=== PATIENT | female | born 1990 | race Two or more races ===

== ENCOUNTER 2019-01-21 16:10 | Observation (INO) | payer MEDICAID, OTHER ==
[2019-01-22] MEDS ORDERED: PREN-145 OR (19:30)
== END 2019-01-21 17:25 | disposition home or self-care (01) | DRG 566 ==
LOC: LDRP 16:10
PROVIDERS: ADMIT Specialist; ATTEND Specialist
DX: O21.2 Late vomiting of pregnancy (principal); Z3A.30 30 weeks gestation of pregnancy
CPT/HCPCS: 59025; 76818; 81002; G0378

== ENCOUNTER 2019-01-22 19:00 | Observation (INO) | payer MEDICAID ==
[~2019-01-22] VITALS: Ht 160 cm; Wt 54.4 kg
[2019-01-22] MEDS ORDERED: PREN-145 OR (19:30)
== END 2019-01-22 20:10 | disposition home or self-care (01) | DRG 565 ==
LOC: LDRP 19:00
PROVIDERS: ADMIT Specialist; ATTEND Specialist
DX: O47.03 False labor before 37 completed weeks of gestation, third trimester (principal); O26.893 Other specified pregnancy related conditions, third trimester; R51 Headache; R11.0 Nausea; Z3A.30 30 weeks gestation of pregnancy
CPT/HCPCS: G0378

== ENCOUNTER 2019-01-23 10:59 | Observation (INO) | payer MEDICAID ==
[~2019-01-23] VITALS: Ht 152.4 cm; Wt 56.7 kg
[~2019-01-23 10:59] MED LIST: PREN-145 OR
[2019-01-23] MEDS ORDERED: BETAMETHASONE ACET (6MG/ML) 5ML VIAL IM ONE (13:00)
[2019-01-23] MEDS ORDERED: TERBUTALINE SULFATE 1 MG/ML 1ML VIAL SC ONE (13:11)
[2019-01-24] MEDS ORDERED: TERBUTALINE SULFATE 1 MG/ML 1ML VIAL SC ONE (10:00)
[2019-01-24] MEDS ORDERED: NIF10C PO (17:26)
== END 2019-01-23 13:25 | disposition home or self-care (01) | DRG 566 ==
LOC: LDRP 10:59
PROVIDERS: ADMIT Obstetrics & Gynecology; ATTEND Obstetrics & Gynecology
DX: O10.913 Unspecified pre-existing hypertension complicating pregnancy, third trimester (principal); Z3A.30 30 weeks gestation of pregnancy
CPT/HCPCS: 59025; 76818; 81002; G0378; J0702; J3105; 96361; 96366; 96372

== ENCOUNTER 2019-01-24 16:55 | Observation (INO) | payer MEDICAID ==
[2019-01-24] MEDS ORDERED: BETAMETHASONE ACET (6MG/ML) 5ML VIAL IM ONE (17:15)
[2019-01-24] MEDS ORDERED: NIF10C PO (17:26)
== END 2019-01-24 17:50 | disposition home or self-care (01) | DRG 560 ==
LOC: LDRP 16:55
PROVIDERS: ADMIT Obstetrics & Gynecology; ATTEND Obstetrics & Gynecology
DX: O69.5XX0 Labor and delivery complicated by vascular lesion of cord, not applicable or unspecified (principal); O62.9 Abnormality of forces of labor, unspecified; Z3A.30 30 weeks gestation of pregnancy
CPT/HCPCS: 59025; 81002; 96372; G0378; J0702

== ENCOUNTER 2019-01-26 11:25 | Observation (INO) | payer MEDICAID ==
[~2019-01-26 11:25] MED LIST changes: +NIF10C PO
== END 2019-01-26 11:30 | disposition home or self-care (01) | DRG 563 ==
LOC: LDRP 11:25
PROVIDERS: ADMIT Obstetrics & Gynecology; ATTEND Obstetrics & Gynecology
DX: O60.03 Preterm labor without delivery, third trimester (principal); O26.893 Other specified pregnancy related conditions, third trimester; N89.8 Other specified noninflammatory disorders of vagina; O69.5XX0 Labor and delivery complicated by vascular lesion of cord, not applicable or unspecified; Z3A.30 30 weeks gestation of pregnancy
CPT/HCPCS: 59025; 76818; 81002; G0378

== ENCOUNTER 2019-01-29 10:31 | Observation (INO) | payer MEDICAID | END 2019-01-29 11:45 | disposition home or self-care (01) | DRG 560 | LOC: LDRP 10:31 | PROVIDERS: ADMIT Specialist; ATTEND Specialist | DX: O69.5XX2 Labor and delivery complicated by vascular lesion of cord, fetus 2 (principal); Z3A.31 31 weeks gestation of pregnancy | CPT/HCPCS: 59025; 76818; 81002; G0378 ==

== ENCOUNTER 2019-02-01 09:46 | Observation (INO) | payer MEDICAID | END 2019-02-01 11:03 | disposition home or self-care (01) | DRG 560 | LOC: LDRP 09:46 | PROVIDERS: ADMIT Obstetrics & Gynecology; ATTEND Obstetrics & Gynecology | DX: O69.5XX2 Labor and delivery complicated by vascular lesion of cord, fetus 2 (principal); O60.03 Preterm labor without delivery, third trimester; O26.893 Other specified pregnancy related conditions, third trimester; N89.8 Other specified noninflammatory disorders of vagina; Z3A.31 31 weeks gestation of pregnancy | CPT/HCPCS: 59025; 76818; 81002; G0378 ==

== ENCOUNTER 2019-02-02 10:58 | Observation (INO) | payer MEDICAID | END 2019-02-06 11:30 | disposition home or self-care (01) | DRG 560 | LOC: UNDOADMOB 10:58 → LDRP 10:58 | PROVIDERS: ADMIT Obstetrics & Gynecology; ATTEND Obstetrics & Gynecology | DX: O69.5XX2 Labor and delivery complicated by vascular lesion of cord, fetus 2 (principal); O60.03 Preterm labor without delivery, third trimester; Z3A.32 32 weeks gestation of pregnancy | CPT/HCPCS: 59025; 76818; 81002; G0378 ==

== ENCOUNTER 2019-02-10 09:25 | Observation (INO) | payer MEDICAID ==
[2019-02-10] MEDS ORDERED: NIFEdipine 10 MG CAP PO ONE (10:15)
== END 2019-02-10 10:25 | disposition home or self-care (01) | DRG 560 ==
LOC: LDRP 09:25
PROVIDERS: ADMIT Obstetrics & Gynecology; ATTEND Obstetrics & Gynecology
DX: O69.5XX2 Labor and delivery complicated by vascular lesion of cord, fetus 2 (principal); O62.9 Abnormality of forces of labor, unspecified; Z3A.32 32 weeks gestation of pregnancy
CPT/HCPCS: 59025; 76818; 81002; G0378

== ENCOUNTER 2019-02-13 10:30 | Observation (INO) | payer MEDICAID ==
[~2019-02-13] VITALS: Ht 160 cm; Wt 54.0 kg
== END 2019-02-13 12:40 | disposition home or self-care (01) | DRG 560 ==
LOC: LDRP 10:30
PROVIDERS: ADMIT Specialist; ATTEND Specialist
DX: O69.5XX2 Labor and delivery complicated by vascular lesion of cord, fetus 2 (principal); O26.893 Other specified pregnancy related conditions, third trimester; R11.0 Nausea; Z3A.33 33 weeks gestation of pregnancy
CPT/HCPCS: 59025; 76818; 81002; G0378; A6257

== ENCOUNTER 2019-02-16 09:52 | Observation (INO) | payer MEDICAID | END 2019-02-16 11:00 | disposition home or self-care (01) | DRG 560 | LOC: LDRP 09:52 | PROVIDERS: ADMIT Specialist; ATTEND Specialist | DX: O69.5XX2 Labor and delivery complicated by vascular lesion of cord, fetus 2 (principal); O60.03 Preterm labor without delivery, third trimester; Z3A.33 33 weeks gestation of pregnancy | CPT/HCPCS: 59025; 76818; 81002; 82948; G0378 ==

== ENCOUNTER 2019-02-20 10:45 | Observation (INO) | payer MEDICAID | END 2019-02-20 12:10 | disposition home or self-care (01) | DRG 563 | LOC: LDRP 10:45 | PROVIDERS: ADMIT Obstetrics & Gynecology; ATTEND Obstetrics & Gynecology | DX: O60.03 Preterm labor without delivery, third trimester (principal); O69.5XX2 Labor and delivery complicated by vascular lesion of cord, fetus 2; Z3A.34 34 weeks gestation of pregnancy | CPT/HCPCS: 59025; 76818; 81002; G0378 ==

== ENCOUNTER 2019-02-21 16:05 | Observation (INO) | payer MEDICAID | END 2019-02-21 17:05 | disposition home or self-care (01) | DRG 566 | LOC: LDRP 16:05 | PROVIDERS: ADMIT Specialist; ATTEND Specialist | DX: O62.9 Abnormality of forces of labor, unspecified (principal); Z3A.34 34 weeks gestation of pregnancy | CPT/HCPCS: 59025; 81002; G0378 ==

== ENCOUNTER 2019-02-23 10:05 | Observation (INO) | payer MEDICAID | END 2019-02-23 10:50 | disposition home or self-care (01) | DRG 560 | LOC: LDRP 10:05 | PROVIDERS: ADMIT Obstetrics & Gynecology; ATTEND Obstetrics & Gynecology | DX: O69.5XX2 Labor and delivery complicated by vascular lesion of cord, fetus 2 (principal); Z3A.34 34 weeks gestation of pregnancy | CPT/HCPCS: 59025; 76818; 81002; G0378 ==

== ENCOUNTER 2019-02-27 10:03 | Observation (INO) | payer MEDICAID | END 2019-02-27 11:50 | disposition home or self-care (01) | DRG 560 | LOC: LDRP 10:03 | PROVIDERS: ADMIT Specialist; ATTEND Specialist | DX: O69.5XX2 Labor and delivery complicated by vascular lesion of cord, fetus 2 (principal); Z3A.35 35 weeks gestation of pregnancy | CPT/HCPCS: 59025; 76818; 81002; G0378 ==

== ENCOUNTER 2019-03-02 09:43 | Observation (INO) | payer MEDICAID | END 2019-03-02 11:05 | disposition home or self-care (01) | DRG 566 | LOC: LDRP 09:43 | PROVIDERS: ADMIT Specialist; ATTEND Specialist | DX: O62.9 Abnormality of forces of labor, unspecified (principal); Z3A.35 35 weeks gestation of pregnancy | CPT/HCPCS: 59025; 76818; 81002; G0378 ==

== ENCOUNTER 2019-03-06 10:36 | Observation (INO) | payer MEDICAID | END 2019-03-06 11:43 | disposition home or self-care (01) | DRG 861 | LOC: LDRP 10:36 | PROVIDERS: ADMIT Obstetrics & Gynecology; ATTEND Obstetrics & Gynecology | DX: Z34.93 Encounter for supervision of normal pregnancy, unspecified, third trimester (principal); Z3A.36 36 weeks gestation of pregnancy | CPT/HCPCS: 59025; 76818; 81002; G0378 ==

== ENCOUNTER 2019-03-08 11:37 | Observation (INO) | payer MEDICAID | END 2019-03-08 13:10 | disposition home or self-care (01) | DRG 560 | LOC: LDRP 11:37 | PROVIDERS: ADMIT Specialist; ATTEND Specialist | DX: O69.5XX2 Labor and delivery complicated by vascular lesion of cord, fetus 2 (principal); Z3A.36 36 weeks gestation of pregnancy | CPT/HCPCS: 59025; 76818; 81002; G0378 ==

== ENCOUNTER 2019-03-12 10:51 | Observation (INO) | payer MEDICAID | END 2019-03-12 11:55 | disposition home or self-care (01) | DRG 560 | LOC: LDRP 10:51 | PROVIDERS: ADMIT Specialist; ATTEND Specialist | DX: O69.5XX2 Labor and delivery complicated by vascular lesion of cord, fetus 2 (principal); Z3A.37 37 weeks gestation of pregnancy | CPT/HCPCS: 59025; 76818; 81002; G0378 ==

== ENCOUNTER 2019-03-17 08:00 | Observation (INO) | payer MEDICAID | END 2019-03-17 09:25 | disposition home or self-care (01) | DRG 566 | LOC: LDRP 08:00 | PROVIDERS: ADMIT Specialist; ATTEND Specialist | DX: O36.8130 Decreased fetal movements, third trimester, not applicable or unspecified (principal); O69.5XX2 Labor and delivery complicated by vascular lesion of cord, fetus 2; Z3A.37 37 weeks gestation of pregnancy | CPT/HCPCS: 76818; G0378; 59025; 81002 ==

== ENCOUNTER 2019-03-19 07:33 | Observation (INO) | payer MEDICAID ==
[~2019-03-19 07:33] MED LIST changes: -NIF10C PO
== END 2019-03-19 09:30 | disposition home or self-care (01) | DRG 560 ==
LOC: LDRP 07:33
PROVIDERS: ADMIT Specialist; ATTEND Specialist
DX: O69.5XX2 Labor and delivery complicated by vascular lesion of cord, fetus 2 (principal); Z3A.38 38 weeks gestation of pregnancy
CPT/HCPCS: 59025; 76818; 81002; G0378

== ENCOUNTER 2019-03-23 13:48 | Observation (INO) | payer MEDICAID | END 2019-03-23 14:55 | disposition home or self-care (01) | DRG 560 | LOC: LDRP 13:48 | PROVIDERS: ADMIT Obstetrics & Gynecology; ATTEND Obstetrics & Gynecology | DX: O69.5XX2 Labor and delivery complicated by vascular lesion of cord, fetus 2 (principal); O62.9 Abnormality of forces of labor, unspecified; Z3A.38 38 weeks gestation of pregnancy | CPT/HCPCS: 59025; 76818; 81002; G0378 ==

== ENCOUNTER 2019-03-27 12:08 | Observation (INO) | payer MEDICAID | END 2019-03-27 16:40 | disposition home or self-care (01) | DRG 566 | LOC: LDRP 12:08 | PROVIDERS: ADMIT Specialist; ATTEND Specialist | DX: O62.9 Abnormality of forces of labor, unspecified (principal); Z3A.39 39 weeks gestation of pregnancy | CPT/HCPCS: 59025; 76818; 81002; G0378 ==

== ENCOUNTER 2019-03-28 11:10 | Observation (INO) | payer MEDICAID | END 2019-03-28 13:20 | disposition home or self-care (01) | DRG 566 | LOC: LDRP 11:10 | PROVIDERS: ADMIT Specialist; ATTEND Specialist | DX: O26.893 Other specified pregnancy related conditions, third trimester (principal); O62.9 Abnormality of forces of labor, unspecified; Q27.0 Congenital absence and hypoplasia of umbilical artery; Z3A.39 39 weeks gestation of pregnancy | CPT/HCPCS: 59025; 76818; 81002; G0378 ==

== ENCOUNTER 2019-03-30 10:43 | Observation (INO) | payer MEDICAID | END 2019-03-30 12:08 | disposition home or self-care (01) | DRG 566 | LOC: LDRP 10:43 | PROVIDERS: ADMIT Obstetrics & Gynecology; ATTEND Obstetrics & Gynecology | DX: O62.9 Abnormality of forces of labor, unspecified (principal); Z3A.39 39 weeks gestation of pregnancy | CPT/HCPCS: 59025; 76818; 81002; G0378 ==

== ENCOUNTER 2019-03-30 22:00 | Inpatient (IN) | payer MEDICAID | END 2019-03-31 08:30 | disposition home or self-care (01) | LOC: LDRP 22:00 ==

== ENCOUNTER 2019-04-01 08:30 | Observation (INO) | payer MEDICAID | END 2019-04-01 10:00 | disposition home or self-care (01) | DRG 560 | LOC: LDRP 08:30 | PROVIDERS: ADMIT Obstetrics & Gynecology; ATTEND Obstetrics & Gynecology | DX: O69.5XX2 Labor and delivery complicated by vascular lesion of cord, fetus 2 (principal); Z3A.40 40 weeks gestation of pregnancy | CPT/HCPCS: 59025; 76818; 81002; G0378 ==

== ENCOUNTER 2019-04-03 04:00 | Inpatient (IN) | payer MEDICAID ==
[~2019-04-03] VITALS: Ht 160 cm; Wt 54.4 kg
[2019-04-03] MEDS ORDERED: LACTATED RINGER'S 1,000 ML IV SCH (05:07)
[2019-04-03] MEDS ORDERED: LACT. RINGERS/OXYTOCIN 20UNITS 1,000 ML IV SCH (05:07)
[2019-04-03] MEDS ORDERED: PENICILLIN G POT 5MIL/D5 50ML 50 ML IV ONE ×2 (05:15→05:32)
[2019-04-03] MEDS ORDERED: CARBOPROST TROMETHAMINE 250 MCG/1ML VIAL IM PRN (05:15)
[2019-04-03] MEDS ORDERED: PHISODERM TOP SOLN 240ML BTL TOP PRN (05:15)
[2019-04-03] MEDS ORDERED: METHYLERGONOVINE MALEATE 0.2 MG/ML AMP IM PRN (05:15)
[2019-04-03] MEDS ORDERED: WITCH HAZEL-GLYCERIN PAD TOP PRN (05:15)
[2019-04-03] MEDS ORDERED: DERMOPLAST 60ML BOTTLE TOP PRN (05:15)
[2019-04-03] MEDS ORDERED: NALBUPHINE HCL 10 MG/1ml INJECTION IV PRN (05:15)
[2019-04-03] MEDS ORDERED: LIDOCAINE 2%HCL (LOCAL ANESTH.) INJ 20ML MDV ID ONE (05:15)
[2019-04-03 06:42] LABS: INR < 0.93 (0.9-1.15); Partial Thromboplastin Time 24.5 sec (23.64-32.05)
[2019-04-03 06:53] LABS: Albumin 2.7 g/dL (3.4-5.0); BUN/Creatinine Ratio 10.2; Calcium 8.4 mg/dL (8.5-10.1); Potassium 3.5 mmol/L (3.5-5.1)
[2019-04-03 06:56] LABS: Basophils # (auto) 0 uL; Basophils % (auto) 0.3 % (0.0-2.0); Eosinophils # (auto) 0.1 uL; Eosinophils % (auto) 1.2 % (0.0-7.0); Hematocrit 37.8 % (36.0-46.0); Hemoglobin 12.9 g/dL (12.2-16.2); Lymphocytes # (auto) 1.2 uL; Lymphocytes % (auto) 18.5 % (10.0-50.0); Mean Corpuscular Hgb Conc. 34.2 g/dL (32.0-36.0); Monocytes # (auto) 0.3 uL; Monocytes % (auto) 5.5 % (0.0-12.0); Neutrophils # (auto) 4.6 uL; Neutrophils % (auto) 74.5 % (37.0-80.0); Nucleated Red Blood Cells % 0.1 %; Platelet Count (auto) 165 10^3/uL (140-450); Red Cell Distribution Width 13.5 % (11.8-14.3); White Blood Cell 6.2 10^3/uL (4.4-10.8)
[2019-04-03 07:36] LABS: Urine Amorphous Crystal FEW /hpf (None Seen); Urine Bacteria FEW /hpf (None Seen); Urine Blood 2+ /uL (Negative); Urine Mucus FEW (None Seen); Urine Specific Gravity 1.016 (1.001-1.035); Urine WBC 3 /hpf (0 - 5)
[2019-04-03 08:00] LABS: Bilirubin, Total 0.4 mg/dL (0.2-1.0); Total Protein 6.4 g/dL (6.4-8.2)
[2019-04-03 08:42] LABS: Uric Acid 3.7 mg/dL (2.6-6.0)
[2019-04-03] MEDS ORDERED: PENICILLIN G POTASSIUM 2,500,000 UNITS in D5W 5% 50 ML IV SCH (09:15)
[2019-04-03] MEDS: IBUPROFEN 600 MG TAB PO PRN ×2 (09:56→16:52)
--- NOTE | 2019-04-03 10:15 | NUR ---
Report received from Katie Israel on stable couplet.
[2019-04-03 10:45] VITALS: BP 115/75
--- NOTE | 2019-04-03 10:45 | NUR ---
Ambulation: Patient OOB with standby assistance by RN. Patient ambulated to bathroom with steady gait. Patient able to void without difficulty. [facility] teaching provided with returned demonstration by patient. Clean gown provided and bed linen changed. Patient ambulated back to bed with steady gait and no distress noted.
--- NOTE | 2019-04-03 12:00 | NUR ---
Teaching: Reviewed information in [facility] booklet with patient. Discussed benefits of and risks associated with not . Discussed different positions, proper latch, feeding cues, and baby-led . Provided information of medication side effects related to . All questions and concerns addressed at this time. Patient verbalized understanding of information.
[2019-04-03 15:00] VITALS: BP 116/78
[2019-04-03 18:30] VITALS: BP 114/74
[2019-04-03 22:45] VITALS: BP 112/63
[2019-04-03] MEDS ORDERED: ACETAMINOPHEN 325 MG TAB PO ONE (23:15)
[2019-04-03] MEDS ORDERED: ACETAMINOPHEN 325 MG TAB PO PRN (23:45)
[2019-04-04] MEDS ORDERED: WITCH HAZEL-GLYCERIN PAD TOP ONE (05:07)
[2019-04-04 06:45] VITALS: BP 126/64
[2019-04-04 07:07] LABS: RPR Non Reactive (Non Reactive)
--- NOTE | 2019-04-04 10:15 | NUR ---
Discharge: Discharge instructions given as ordered. Pt encouraged to follow up with CLIENT SERVICES ACCOUNT MANAGER as instructed. All questions and concerns addressed. Patient verbalized understanding. Medication reconciliation completed and copy given to patient. All required/requested vaccines given and copies of vaccinations given to patient. Patient encouraged to prepare to depart unit.
[2019-04-04] MEDS ORDERED: WITCH HAZEL-GLYCERIN PAD TOP PRN (11:00)
[2019-04-04] MEDS ORDERED: DERMOPLAST 60ML BOTTLE TOP PRN (11:00)
[2019-04-04 11:05] VITALS: BP 109/75
--- NOTE | 2019-04-04 12:10 | NUR ---
Discharge: Patient ambulated to vehicle with all personal belongings, accompanied by staff and family member. No distress noted at time of departure, no adverse changes in status since initial assessment.
== END 2019-04-04 12:10 | disposition home or self-care (01) | DRG 560 ==
LOC: LDRP 04:00 → OBSVTOIN 04:00 → LDRP 12:51
PROVIDERS: ADMIT Specialist; ATTEND Specialist
PROC: 10D07Z6 Extraction of Products of Conception, Vacuum, Via Natural or Artificial Opening (ICD-10-PCS; principal; 2019-04-03)
PROC: 0W8NXZZ Division of Female Perineum, External Approach (ICD-10-PCS; 2019-04-03)
PROC: 10907ZC Drainage of Amniotic Fluid, Therapeutic from Products of Conception, Via Natural or Artificial Opening (ICD-10-PCS; 2019-04-03)
DX: O69.89X0 Labor and delivery complicated by other cord complications, not applicable or unspecified (principal); Z22.330 Carrier of Group B streptococcus; Z37.0 Single live birth; Z3A.40 40 weeks gestation of pregnancy
CPT/HCPCS: 36415; 59025; 59409; 80053; 81001; 84112; 84550; 85025; 85610; 85730; 86592; 86850; 86900; 86901; 96361; 96365; 96366; G0378; J2540; J2590; J7060